=== PATIENT | male | born 1940 | race Caucasian/White ===

== ENCOUNTER → 2016-07-31 | Outpatient (CLI) | payer OTHER ==
[~2016-07-31] VITALS: Ht 175.3 cm; Wt 78.0 kg
[~2016-07-31] MED LIST: ADULT LOW DOSE81 MG PO; AMARYL1 MG PO; ASPIRIN EC81 M1 PO; BENICAR HCT 401 EACH PO; BENTYL20 MG PO; CELEXA 20 MG TA20 M1 PO; CENTRUM SILVER1 EAC2 PO; CIPROFLOXACIN500 M3 PO; CLONIDINE HCL0.2 M2 GT; CRESTOR10 MG PO; CRESTOR20 MG PO; DRAMAMINE50 MG PO; FISH OIL 1,0001 EAC9 PO; FISH OIL 1,2001 EAC4 PO; FLAGYL 250 MG250 MG PO; GABAPENTIN; GAVISCON ES CH1 EAC1 PO; HYDROCODON-ACE1 EAC7 PO; IRON325 PO; LANSOPRAZOLE30 MG PO; LEVAQUIN 500 M500 MG PO; LEVEMIR SUBQ; LIVALO2 MG PO; NISOLDIPINE34 MG PO; ONGLYZA2.5 MG PO; ONGLYZA5 MG PO; PREDNISONE 20 M20 M1 PO; PREVACID 30MG C30 M1 PO; PROVENTIL HFA6.7 G1 INH; REPATHA SU140 MG/1 M SQ; TOPROL XL100 MG PO; TOPROL XL50 MG PO; VITAMIN B COMP1 EACH PO; VITAMIN D1000 UNIT PO; ZPAK PO
--- NOTE | ~2016-07-31 | P ---
[facility] [place] [address] PROCEDURE REPORT Name: MARLYN DIALLO Room #: REG [facility]#: [id number] Admission: 07/31/16 Attend Phys: Joce Stewart Discharge: Date of : 38 Report #: [id number] THIS REPORT FOR: //name// CC: Joce Proctor MD PROCEDURE PERFORMED: Colonoscopy with biopsies. HISTORY OF PRESENT ILLNESS: The patient is a 76-year-old male with a history of colon polyps in 2005, last colonoscopy in 2010 showed diverticulosis, but otherwise negative. He is here for routine followup. He denies any symptoms at this time. DESCRIPTION OF PROCEDURE: The risks and benefits of the procedure were explained to the patient, those risks including but not limited to bleeding, perforation, the risk of sedation. He understood these risks and gave informed consent. Sedation was given using propofol per anesthesia. Next, a digital rectal exam was initially performed, which was normal. Next, using a standard Fujinon colonoscope, the scope was placed in the patient's anus and advanced under direct vision to the cecum. The overall prep was excellent. The cecum and ileocecal valve were normal in appearance. Terminal ileum was intubated and normal in appearance. In the ascending colon, a single 3 mm sessile polyp was noted. This was removed with cold forceps, otherwise or this was removed with cold forceps. Scattered diverticulosis was noted throughout the colon today, no evidence of inflammation, otherwise normal transverse, descending and sigmoid colon. The rectal mucosa was normal. On retroflexion, small nonbleeding internal hemorrhoids were noted. The scope was then withdrawn and the procedure terminated. The patient tolerated the procedure well. IMPRESSION: 1. Small colonic polyp. 2. Mild pandiverticulosis. 3. Small internal hemorrhoids. 4. Otherwise, normal colonoscopy. RECOMMENDATIONS: Await biopsy results. If polyp is hyperplastic, repeat colonoscopy and consider repeat colonoscopy in 10 years; if adenomatous polyp, repeat colonoscopy in 5 years. Thank you for allowing me to participate in his care. <ELECTRONICALLY SIGNED> By: Joce Davis MD 08/01/16 1221 0903 1527 Joce Davis MD /nt
--- NOTE | ~2016-07-31 | S ---
[facility] [address] [place] [address] SURGICAL PATH RPT PROCEDURE Name: MARLYN DIALLO Room #: REG MARILYNN SolisR.#: [id number] Admission: 07/31/16 Date of : 38 Discharge: Report #: [id number] Path Case #: [id number] PATHOLOGY REPORT DRAFT COLLECTION DATE: 07/31/2016 RECEIVED DATE: 07/31/2016 SPECIMEN(S) RECEIVED: A.Ascending colon polyp
== END | disposition home or self-care (01) ==
LOC: GI 07:44
DX: Z12.11 Encounter for screening for malignant neoplasm of colon (principal); D12.2 Benign neoplasm of ascending colon; K57.30 Diverticulosis of large intestine without perforation or abscess without bleeding; K64.8 Other hemorrhoids; I10 Essential (primary) hypertension
CPT/HCPCS: 62110; 62900

== ENCOUNTER → 2016-10-04 | Outpatient (CLI) | payer OTHER ==
[2016-10-04 09:01] LABS: CREATININE 1.8 mg/dL (0.7-1.3)
== END | disposition home or self-care (01) ==
LOC: RAD 07:49 → CAT 09:53 → LAB 09:57 → RAD 10:01
PROVIDERS: Orthopaedic Surgery Sports Medicine
DX: M75.101 Unspecified rotator cuff tear or rupture of right shoulder, not specified as traumatic (principal)

== ENCOUNTER 2016-11-01 05:17 | Day surgery (SDC) | payer OTHER ==
[~2016-11-01] VITALS: Ht 177.8 cm; Wt 79.4 kg
[~2016-11-01 05:17] MED LIST changes: +DEMADEX20 MG PO; +LOPRESSOR50 PO; +MAXZIDE-25 MG1 EACH PO
[2016-11-01 07:11] LABS: CALCIUM 9.7 mg/dL (8.5-10.1); CREATININE 2.2 mg/dL (0.7-1.3); POTASSIUM 5.1 mmol/L (3.5-5.1)
[2016-11-01 07:15] VITALS: BP 155/89
[2016-11-01 10:02] VITALS: BP 155/89
== END 2016-11-01 10:30 | disposition home or self-care (01) ==
LOC: TBA 05:17 → OR 05:17
PROVIDERS: Orthopaedic Surgery Sports Medicine
DX: M75.101 Unspecified rotator cuff tear or rupture of right shoulder, not specified as traumatic (principal); M75.41 Impingement syndrome of right shoulder; M94.211 Chondromalacia, right shoulder; Z95.1 Presence of aortocoronary bypass graft; I10 Essential (primary) hypertension; E78.00 Pure hypercholesterolemia, unspecified; I21.3 ST elevation (STEMI) myocardial infarction of unspecified site; K21.9 Gastro-esophageal reflux disease without esophagitis; E11.9 Type 2 diabetes mellitus without complications; Z90.49 Acquired absence of other specified parts of digestive tract
CPT/HCPCS: 50010; 50101; 50172; 50386; 50417; 50597; 50950; 51038; 51445; 51847; 53610; 54170; 55430; 56527; 62110; 62900; 70005

== ENCOUNTER → 2017-07-31 | Outpatient (CLI) | payer OTHER | END | disposition home or self-care (01) | LOC: CAT 09:28 | DX: M23.221 Derangement of posterior horn of medial meniscus due to old tear or injury, right knee (principal); M22.41 Chondromalacia patellae, right knee ==

== ENCOUNTER 2017-12-22 19:36 | Emergency (ER) | payer OTHER ==
[~2017-12-22] VITALS: Ht 177.8 cm; Wt 81.2 kg
--- NOTE | ~2017-12-22 | EKG ---
[place] [address] [facility] [facility] [place] [address] ELECTROCARDIOGRAM REPORT Name: MARLYN DIALLO Room #: DEP [facility]#: [id number] Admission: 12/22/17 Attend Phys: Discharge: 12/22/17 Date of : 38 Report #: [id number] THIS REPORT FOR: //name// [facility] ED Test Date: 2017-12-22 Test Time: 19:50:59 Pat Name: MARLYN DIALLO Department: Room: Gender: Compressor Technician: GRACEJagruti : 1940 Requested By: Pinky Robles Order Number: [id number] MD: Miki Kirkland Measurements Intervals [place] Rate: 84 P: 32 MI: 225 QRS: -21 QRSD: 98 T: 8 QT: 375 QTc: 444 Interpretive Statements Sinus rhythm Prolonged MI interval Borderline T wave abnormalities Baseline wander in lead(s) II,III,aVF Compared to ECG 09/15/2014 11:37:08 Ventricular premature complex(es) no longer present Electronically Signed On 12-24-2017 8:34:01 CDT by Miki Kirkland [email or web address] <ELECTRONICALLY SIGNED> By: Miki Kirkland MD, FAC 12/24/17 0834 1950 1950 Miki Kirkland MD, [facility] /EPI
[2017-12-22] MEDS ORDERED: LEVOTHYROXINE25 MCG PO (20:06)
[2017-12-22 20:22] LABS: ABSOLUTE NEUTROPHILS 3.2 thou/uL (1.4-8.2); BASOPHILS 0.9 % (0.0-2.0); EOSINOPHILS 7.9 % (0.0-3.0); HEMATOCRIT 32.3 % (42.0-52.0); LYMPHOCYTES 24.9 % (24.0-44.0); MCH 31.5 pg (26.0-34.0); MCHC 34.2 g/dL (28.0-37.0); MCV 92.3 fL (80.0-100.0); MONOCYTES 8.7 % (1.0-8.0); PLATELET COUNT 262 thou/uL (150-400); POLYS 57.6 % (36.0-66.0); RDW 13.9 % (10.5-14.5); WBC 5.5 thou/uL (4.0-11.0)
[2017-12-22 20:30] LABS: ANION GAP 13 mmol/L (7-16); BUN 52 mg/dL (7-18); CALCIUM 9.2 mg/dL (8.5-10.1); CHLORIDE 104 mmol/L (98-107); CO2 19 mmol/L (21-32); CREATININE 2.5 mg/dL (0.7-1.3); GLUCOSE 281 mg/dL (74-106); SODIUM 136 mmol/L (136-145)
[2017-12-22 20:41] LABS: TROPONIN-I <0.06 ng/mL (<0.06)
[2017-12-22] MEDS ORDERED: PROVENTIL HFA6.7 G1 INH (21:38)
[2017-12-22] MEDS ORDERED: PULMICORT0.5 MG/22 INH (21:52)
[2017-12-22] MEDS ORDERED: FLONASE 0.05%50 MCG NASAL (21:55)
[2017-12-22 22:00] VITALS: BP 165/71
== END 2017-12-22 22:00 | disposition home or self-care (01) ==
LOC: ER 19:36
PROVIDERS: Emergency Medicine
DX: J06.9 Acute upper respiratory infection, unspecified (principal); N18.9 Chronic kidney disease, unspecified; I13.0 Hypertensive heart and chronic kidney disease with heart failure and stage 1 through stage 4 chronic kidney disease, or unspecified chronic kidney disease; E11.22 Type 2 diabetes mellitus with diabetic chronic kidney disease; I50.9 Heart failure, unspecified; E78.00 Pure hypercholesterolemia, unspecified; K21.9 Gastro-esophageal reflux disease without esophagitis; Z90.49 Acquired absence of other specified parts of digestive tract; Z95.5 Presence of coronary angioplasty implant and graft; Z87.442 Personal history of urinary calculi; Z88.8 Allergy status to other drugs, medicaments and biological substances; Z79.4 Long term (current) use of insulin

== ENCOUNTER 2018-05-27 22:15 | Emergency (ER) | payer OTHER ==
[~2018-05-27] VITALS: Ht 175.3 cm; Wt 91.2 kg
[~2018-05-27 22:15] MED LIST changes: +FLONASE 0.05%50 MCG NASAL; +LEVOTHYROXINE25 MCG PO; +PULMICORT0.5 MG/22 INH
[2018-05-27] MEDS ORDERED: ZPAK PO (23:01)
[2018-05-27] MEDS ORDERED: NEURONTIN 300300 M1 PO (23:02)
[2018-05-27] MEDS ORDERED: TORSEMIDE20 MG PO (23:03)
[2018-05-27] MEDS ORDERED: LEXAPRO 10 MG T10 M2 PO (23:03)
[2018-05-27 23:05] LABS: ABSOLUTE NEUTROPHILS 5.4 thou/uL (1.4-8.2); BASOPHILS 0.5 % (0.0-2.0); HEMATOCRIT 33.7 % (42.0-52.0); HEMOGLOBIN 11.6 gm/dL (14.0-18.0); LYMPHOCYTES 12.4 % (24.0-44.0); MCH 31.3 pg (26.0-34.0); MCHC 34.5 g/dL (28.0-37.0); MCV 90.9 fL (80.0-100.0); MONOCYTES 9.3 % (1.0-8.0); PLATELET COUNT 216 thou/uL (150-400); POLYS 75.8 % (36.0-66.0); RBC 3.71 mil/uL (4.50-6.00); RDW 12.9 % (10.5-14.5); WBC 7.1 thou/uL (4.0-11.0)
[2018-05-27 23:17] LABS: CALCIUM 8.7 mg/dL (8.5-10.1); CREATININE 3.3 mg/dL (0.7-1.3); POTASSIUM 4.8 mmol/L (3.5-5.1)
[2018-05-27] MEDS ORDERED: ACETAMINOPHEN-1 EAC1 PO (23:55)
[2018-05-28 00:18] VITALS: BP 124/52
[2018-05-29] MEDS ORDERED: REPATHA SY140 MG/1 M SUBQ (23:43)
== END 2018-05-28 00:18 | disposition home or self-care (01) ==
LOC: ER 22:15
PROVIDERS: Emergency Medicine
DX: J18.9 Pneumonia, unspecified organism (principal); E11.9 Type 2 diabetes mellitus without complications; I10 Essential (primary) hypertension; E78.00 Pure hypercholesterolemia, unspecified; K21.9 Gastro-esophageal reflux disease without esophagitis; Z95.1 Presence of aortocoronary bypass graft; Z95.5 Presence of coronary angioplasty implant and graft; Z88.8 Allergy status to other drugs, medicaments and biological substances

== ENCOUNTER 2018-05-29 21:09 | Inpatient (IN) | payer OTHER ==
[~2018-05-29] VITALS: Ht 175.3 cm; Wt 92.1 kg
[~2018-05-29 21:09] MED LIST changes: +ACETAMINOPHEN-1 EAC1 PO; +LEXAPRO 10 MG T10 M2 PO; +NEURONTIN 300300 M1 PO; +TORSEMIDE20 MG PO
[2018-05-29 21:20] VITALS: BP 156/66
[2018-05-29 22:20] LABS: HEMATOCRIT 31.1 % (42.0-52.0); HEMOGLOBIN 10.6 gm/dL (14.0-18.0); MCH 31.2 pg (26.0-34.0); MCHC 33.9 g/dL (28.0-37.0); PLATELET COUNT 198 thou/uL (150-400); RBC 3.38 mil/uL (4.50-6.00); RDW 13.2 % (10.5-14.5); WBC 6.2 thou/uL (4.0-11.0)
[2018-05-29 22:25] LABS: ANION GAP 14 mmol/L (7-16); BUN 86 mg/dL (7-18); CALCIUM 8.8 mg/dL (8.5-10.1); CHLORIDE 101 mmol/L (98-107); CO2 22 mmol/L (21-32); GLUCOSE 149 mg/dL (74-106); POTASSIUM 4.9 mmol/L (3.5-5.1); SODIUM 137 mmol/L (136-145)
[2018-05-29 22:29] LABS: CREATININE 4.4 mg/dL (0.7-1.3)
[2018-05-29 22:34] LABS: ALBUMIN 2.9 g/dL (3.4-5.0); MAGNESIUM 2.2 mg/dL (1.8-2.4); SGOT 15 U/L (15-37); SGPT 14 U/L (30-65); TOTAL BILIRUBIN 0.5 mg/dL (<0.1-1.0); TOTAL PROTEIN 6.9 g/dL (6.4-8.2); TROPONIN-I <0.06 ng/mL (<0.06)
[2018-05-29 22:55] VITALS: BP 153/63
[2018-05-29 22:55] LABS: ABSOLUTE NEUTROPHILS 4.2 thou/uL (1.4-8.2)
[2018-05-29 22:58] LABS: PLATELET ESTIMATE NORMAL; POLYCHROMASIA OCCASIONAL
[2018-05-29 23:25] VITALS: BP 154/57
[2018-05-29] MEDS ORDERED: REPATHA SY140 MG/1 M SUBQ (23:43)
--- NOTE | 2018-05-30 04:18 | NUR ---
PT ORIENTATED TO ROOM AND CALL LIGHT PT VERY IQUGMIUT AND IS NOT ABLE TO UNDERSTAND COMMANDS THE BEST PROVIDER NOTIFIED OF PT ORDERS GIVEN.
[2018-05-30 04:20] VITALS: BP 148/52
[2018-05-30 07:37] VITALS: BP 166/52
[2018-05-30 08:40] LABS: CALCIUM 9.1 mg/dL (8.5-10.1); CREATININE 3.5 mg/dL (0.7-1.3); POTASSIUM 4.8 mmol/L (3.5-5.1)
--- NOTE | 2018-05-30 08:53 | EKG ---
[place] [address] [facility] [place] [address] ELECTROCARDIOGRAM REPORT Name: MARLYN DIALLOIN Room #: 464-P ADM IN M.R.#: [id number] Admission: 05/29/18 Attend Phys: Jared Proctor MD Discharge: Date of : 38 Report #: [id number] THIS REPORT FOR: //name// [facility] ED Test Date: 2018-05-29 Test Time: 22:43:04 Pat Name: MARLYN DIALLO Department: Room: 464 Gender: M Risk Officer: aly : 1940 Requested By: Sudarshan Booker Order Number: [id number] MD: Miki Kirkland Measurements Intervals [place] Rate: 95 P: 28 [place]: 210 QRS: -15 QRSD: 108 T: 101 QT: 360 QTc: 453 Interpretive Statements Sinus tachycardia Premature ventricular complexes Borderline repolarization abnormality Compared to ECG 12/22/2017 19:50:59 Ventricular premature complex(es) now present Electronically Signed On 05-30-2018 8:53:28 ASSET ADMINISTRATOR by Miki Kirkland [email or web address] <ELECTRONICALLY SIGNED> By: Miki Kirkland MD, [facility] 05/30/18 0853 2243 42 Miki Kirkland MD, [facility] /EPI
[2018-05-30 10:14] VITALS: BP 153/78
--- NOTE | 2018-05-30 15:33 | NUR ---
ASSUMED PT CARE AT 0645 . PT IS A/OX4 BUT VERY TAZLINA. PT COMPLAINED OF CLAMMINESS THAT WENT AWAY WITHIN AN HOUR, WITHOUT INTERVENTION. WILL CONTINUE TO MONTIOR PT
[2018-05-30 16:02] VITALS: BP 153/52
--- NOTE | 2018-05-30 16:21 | NUR ---
PT ADMITTED RELATED TO PNA. CM REVIEWED CHART AND SPOKE WITH LESLI TEAM. CM MET WITH PT AT BEDSIDE THIS DAY. PT IS A&O X4. CM ROLE INTRODUCED. PT INDICATED HE LIVES IN A GROUND CONTACT HOUSE WITH HIS . PT INDICATED HE HAD BEEN INDEPENDENT WITH GAIT AND ADLS FLOWER PICKER. PT INDICATED HE HAS A NEBULIZER AT HOME BUT THAT HE HADN'T USED IT FLOWER PICKER. PT INDICATED NO HH OR OTHER DME HX. PT PLANS TO RETURN HOME ONCE MEDICALLY STABLE. CM TO FOLLOW INDICATED WITH DC PLANNING.
[2018-05-31 04:58] VITALS: BP 131/64
[2018-05-31 05:46] LABS: ALBUMIN 2.7 g/dL (3.4-5.0); CALCIUM 8.7 mg/dL (8.5-10.1); CREATININE 2.7 mg/dL (0.7-1.3); PHOSPHORUS 3.9 mg/dL (2.5-4.9)
[2018-05-31 06:08] LABS: POTASSIUM 3.8 mmol/L (3.5-5.1)
--- NOTE | 2018-05-31 07:30 | NUR ---
PROGRESS PT HAVING DIFFICULTY SLEEPING AMBULATED IN HALLS A FEW TIMES LAST NIGHT. DENIES PAIN REQUESTED COUGH DROPS DAY NURSE TO SPEAK TO THIS AM TO GET AN ORDER CONTINUE TO MONITOR.
[2018-05-31] MEDS ORDERED: CEFDINIR300 MG PO (07:52)
[2018-05-31 08:15] VITALS: BP 139/67
[2018-05-31 09:40] VITALS: BP 139/67
--- NOTE | 2018-05-31 09:58 | NUR ---
PT STABLE THIS MORNING. PT GIVEN ABX AND DISCHARGED HOME. PT LEFT UNIT VIA WHEELCHAIR TO PRIVATE VEHICLE.
== END 2018-05-31 11:25 | disposition home or self-care (01) | DRG 682 ==
LOC: ER 21:09 → 4W 23:12 → ENTRNSPT 05-31 09:47 → 4W 05-31 11:25
PROVIDERS: Emergency Medicine; Hospitalist; ADMIT Family Medicine
DX: N17.9 Acute kidney failure, unspecified (principal); J18.9 Pneumonia, unspecified organism; E78.5 Hyperlipidemia, unspecified; K21.9 Gastro-esophageal reflux disease without esophagitis; E11.22 Type 2 diabetes mellitus with diabetic chronic kidney disease; N18.9 Chronic kidney disease, unspecified; E86.0 Dehydration; I12.9 Hypertensive chronic kidney disease with stage 1 through stage 4 chronic kidney disease, or unspecified chronic kidney disease; Z95.1 Presence of aortocoronary bypass graft; Z95.5 Presence of coronary angioplasty implant and graft; Z90.49 Acquired absence of other specified parts of digestive tract; Z87.442 Personal history of urinary calculi; Z79.4 Long term (current) use of insulin; Z79.82 Long term (current) use of aspirin; Z79.899 Other long term (current) drug therapy; Z88.8 Allergy status to other drugs, medicaments and biological substances
CPT/HCPCS: 10045

== ENCOUNTER 2018-09-09 19:07 | Emergency (ER) | payer OTHER ==
[~2018-09-09] VITALS: Ht 177.8 cm; Wt 83.9 kg
[~2018-09-09 19:07] MED LIST changes: +CEFDINIR300 MG PO; +REPATHA SY140 MG/1 M SUBQ
[2018-09-09] MEDS ORDERED: VITAMIN B COMP1 EACH PO (19:18)
[2018-09-09 19:28] LABS: ABSOLUTE NEUTROPHILS 3.4 thou/uL (1.4-8.2); BASOPHILS 0.9 % (0.0-2.0); HEMATOCRIT 33.9 % (42.0-52.0); HEMOGLOBIN 11.8 gm/dL (14.0-18.0); LYMPHOCYTES 29.8 % (24.0-44.0); MCH 31.5 pg (26.0-34.0); MCHC 34.8 g/dL (28.0-37.0); MCV 90.3 fL (80.0-100.0); MONOCYTES 9.1 % (1.0-8.0); PLATELET COUNT 240 thou/uL (150-400); POLYS 55.2 % (36.0-66.0); RBC 3.75 mil/uL (4.50-6.00); RDW 13.8 % (10.5-14.5); WBC 6.1 thou/uL (4.0-11.0)
[2018-09-09 19:33] LABS: ANION GAP 13 mmol/L (7-16); BUN 72 mg/dL (7-18); CALCIUM 9.3 mg/dL (8.5-10.1); CHLORIDE 104 mmol/L (98-107); CO2 23 mmol/L (21-32); CREATININE 3.1 mg/dL (0.7-1.3); GLUCOSE 259 mg/dL (74-106); POTASSIUM 4.4 mmol/L (3.5-5.1); SODIUM 140 mmol/L (136-145)
[2018-09-09 19:41] LABS: TROPONIN-I <0.06 ng/mL (<0.06)
[2018-09-09] MEDS ORDERED: IPRATROPIUM BRO15 ML NASAL (21:17)
[2018-09-09 21:35] VITALS: BP 164/71
--- NOTE | 2018-09-10 09:16 | EKG ---
[place] [address] [facility] [place] [address] ELECTROCARDIOGRAM REPORT Name: MARLYN DIALLO [facility] [id number] ������������������ Admission: 09/09/18 ������������������ Attend Phys: Discharge: 09/09/18 ������������������ Date of : 38 Report #: [id number] ����������������������������������������������������������������� [id number] THIS REPORT FOR: //name// [facility] ED Test Date: 2018-09-09 Test Time: 19:15:43 Pat Name: MARLYN DIALLO Department: Room: Gender: Senior Specialist: TALIA : 1940 Requested By: Marlyn Zaldivar Order Number: [id number] MD: Miki Kirkland Measurements Intervals [place] Rate: 85 P: 40 HI: 220 QRS: -21 QRSD: 107 T: 30 QT: 367 QTc: 437 Interpretive Statements Sinus rhythm Frequent premature ventricular complexes Prolonged HI interval Compared to ECG 05/29/2018 22:43:04 No significant change was found Electronically Signed On 09-10-2018 9:16:36 CDT by Miki Kirkland [email or web address] ��������������������������������������������� <ELECTRONICALLY SIGNED> ���������������������������������������� By: Miki Kirkland MD, [facility] ��������������������������������������������� 09/10/18 0916 1914 14 Miki Kirkland MD, FACC /EPI
== END 2018-09-09 21:36 | disposition home or self-care (01) ==
LOC: ER 19:07
PROVIDERS: Emergency Medicine
DX: J30.2 Other seasonal allergic rhinitis (principal); E11.9 Type 2 diabetes mellitus without complications; E78.00 Pure hypercholesterolemia, unspecified; I10 Essential (primary) hypertension; K21.9 Gastro-esophageal reflux disease without esophagitis; E78.5 Hyperlipidemia, unspecified; Z90.49 Acquired absence of other specified parts of digestive tract; Z88.8 Allergy status to other drugs, medicaments and biological substances; Z95.5 Presence of coronary angioplasty implant and graft; Z79.4 Long term (current) use of insulin

== ENCOUNTER 2019-03-07 20:02 | Emergency (ER) | payer OTHER ==
[~2019-03-07] VITALS: Ht 177.8 cm; Wt 81.7 kg
[~2019-03-07 20:02] MED LIST changes: +IPRATROPIUM BRO15 ML NASAL
[2019-03-07 21:10] LABS: HEMATOCRIT 34.2 % (42.0-52.0); HEMOGLOBIN 11.2 gm/dL (14.0-18.0); MCH 30.2 pg (26.0-34.0); MCHC 32.9 g/dL (28.0-37.0); MCV 91.9 fL (80.0-100.0); PLATELET COUNT 286 thou/uL (150-400); RBC 3.72 mil/uL (4.50-6.00); RDW 13.9 % (10.5-14.5); WBC 15.4 thou/uL (4.0-11.0)
[2019-03-07 21:23] LABS: CALCIUM 8.9 mg/dL (8.5-10.1); CREATININE 2.9 mg/dL (0.7-1.3); POTASSIUM 5.2 mmol/L (3.5-5.1)
[2019-03-07 21:28] LABS: ALBUMIN 3.9 g/dL (3.4-5.0); TOTAL BILIRUBIN 0.4 mg/dL (<0.1-1.0)
[2019-03-07 21:49] LABS: URINE BILIRUBIN NEGATIVE (Negative); URINE BLOOD NEGATIVE (Negative); URINE CLARITY CLEAR; URINE COLOR YELLOW; URINE GLUCOSE-RANDOM* NEGATIVE (Negative); URINE KETONES NEGATIVE (Negative); URINE LEUKOCYTES-REFLEX NEGATIVE (Negative); URINE NITRITE-REFLEX NEGATIVE (Negative); URINE PROTEIN (DIPSTICK) 1+ (Negative); URINE UROBILINOGEN 0.2 E.U./dl (0.2-1.0)
[2019-03-07 21:56] LABS: ABSOLUTE NEUTROPHILS 13.6 thou/uL (1.4-8.2); ANISOCYTOSIS 1+
[2019-03-07 21:58] LABS: BACTERIA-REFLEX 1-9 Few /HPF (None Seen); CASTS None Seen /LPF (None Seen); CRYSTALS None Seen /LPF (None Seen); SQUAMOUS None Seen /LPF (0-3); URINE RBC None Seen /HPF (0-2); URINE WBC-REFLEX None Seen /HPF (0-5)
[2019-03-07 22:43] VITALS: BP 136/53
--- NOTE | 2019-03-09 11:22 | EKG ---
[place] [address] [address] [facility] [place] [address] ELECTROCARDIOGRAM REPORT Name: MARLYN DIALLO SHARRI [id number] Admission: 03/07/19 Attend Phys: Discharge: 03/07/19 Date of : 38 Report #: [id number] THIS REPORT FOR: //name// [facility] ED Test Date: 2019-03-07 Test Time: 22:04:46 Pat Name: MARLYN DIALLO Department: Room: Gender: Construction Teacher: : 1940 Requested By: Sherry Beard Order Number: [id number] MD: Royce Delgado Measurements Intervals [place] Rate: 90 P: 17 ME: 215 QRS: -18 QRSD: 87 T: 72 QT: 361 QTc: 442 Interpretive Statements Sinus rhythm Ventricular bigeminy Borderline prolonged ME interval Borderline left axis deviation Nonspecific T abnormalities, lateral leads Compared to ECG 09/09/2018 19:15:43 T-wave abnormality now present Electronically Signed On 03-09-2019 11:21:57 RECREATIONAL PROGRAMS DIRECTOR by Royce Delgado [email or web address] <ELECTRONICALLY SIGNED> By: Royce Delgado MD 03/09/19 1121 03 03 Royce Delgado MD /EPI
== END 2019-03-07 22:43 | disposition home or self-care (01) ==
LOC: ER 20:02
PROVIDERS: Student in an Organized Health Care Education/Training Program
DX: B34.9 Viral infection, unspecified (principal); E11.9 Type 2 diabetes mellitus without complications; I10 Essential (primary) hypertension; K21.9 Gastro-esophageal reflux disease without esophagitis; Z90.49 Acquired absence of other specified parts of digestive tract; Z95.1 Presence of aortocoronary bypass graft; Z95.2 Presence of prosthetic heart valve; E78.00 Pure hypercholesterolemia, unspecified; Z88.8 Allergy status to other drugs, medicaments and biological substances

== ENCOUNTER → 2019-09-02 | Outpatient (CLI) | payer OTHER | LOC: SJCVC 15:01 | DX: I25.10 Atherosclerotic heart disease of native coronary artery without angina pectoris (principal); I12.9 Hypertensive chronic kidney disease with stage 1 through stage 4 chronic kidney disease, or unspecified chronic kidney disease; E11.22 Type 2 diabetes mellitus with diabetic chronic kidney disease; N18.3 Chronic kidney disease, stage 3 (moderate); I65.23 Occlusion and stenosis of bilateral carotid arteries; E78.5 Hyperlipidemia, unspecified; Z79.82 Long term (current) use of aspirin; Z79.899 Other long term (current) drug therapy ==

== ENCOUNTER 2020-01-03 14:06 | Emergency (ER) | payer OTHER ==
[~2020-01-03] VITALS: Ht 177.8 cm; Wt 83.9 kg
[2020-01-03 14:39] LABS: ABSOLUTE NEUTROPHILS 3.3 thou/uL (1.4-8.2); BASOPHILS 0.8 % (0.0-2.0); EOSINOPHILS 4.8 % (0.0-3.0); HEMATOCRIT 31.8 % (42.0-52.0); HEMOGLOBIN 11.1 gm/dL (14.0-18.0); LYMPHOCYTES 20.5 % (24.0-44.0); MCH 31.7 pg (26.0-34.0); MCHC 34.8 g/dL (28.0-37.0); MCV 91.3 fL (80.0-100.0); PLATELET COUNT 263 thou/uL (150-400); POLYS 63.9 % (36.0-66.0); RBC 3.48 mil/uL (4.50-6.00); RDW 13.7 % (10.5-14.5); WBC 5.1 thou/uL (4.0-11.0)
[2020-01-03 14:48] LABS: ANION GAP 13 mmol/L (7-16); BUN 39 mg/dL (7-18); CALCIUM 8.5 mg/dL (8.5-10.1); CHLORIDE 106 mmol/L (98-107); CO2 19 mmol/L (21-32); CREATININE 2.6 mg/dL (0.7-1.3); GLUCOSE 249 mg/dL (74-106); POTASSIUM 4.2 mmol/L (3.5-5.1); SODIUM 138 mmol/L (136-145)
[2020-01-03] MEDS ORDERED: DEMADEX20 MG PO (14:50)
[2020-01-03] MEDS ORDERED: VALSARTAN320 MG PO (14:51)
[2020-01-03] MEDS ORDERED: LEVEMIR100 UNIT/1 SUBQ ×2 (14:51)
[2020-01-03] MEDS ORDERED: FUROSEMIDE 40 M40 MG PO (14:51)
[2020-01-03] MEDS ORDERED: LUNESTA3 MG PO (14:51)
[2020-01-03 14:58] LABS: ALBUMIN 3.6 g/dL (3.4-5.0); MAGNESIUM 1.9 mg/dL (1.8-2.4); SGOT 15 U/L (15-37); SGPT 16 U/L (30-65); TOTAL BILIRUBIN 0.2 mg/dL (0.2-1.0); TOTAL PROTEIN 7.5 g/dL (6.4-8.2); TROPONIN-I <0.06 ng/mL (<0.06)
[2020-01-03 15:18] LABS: URINE BILIRUBIN NEGATIVE (Negative); URINE BLOOD NEGATIVE (Negative); URINE CLARITY CLEAR; URINE COLOR YELLOW; URINE GLUCOSE-RANDOM* TRACE (Negative); URINE KETONES NEGATIVE (Negative); URINE LEUKOCYTES-REFLEX NEGATIVE (Negative); URINE NITRITE-REFLEX NEGATIVE (Negative); URINE PROTEIN (DIPSTICK) NEGATIVE (Negative); URINE UROBILINOGEN 0.2 E.U./dl (0.2-1.0)
[2020-01-03 15:51] VITALS: BP 137/60
--- NOTE | 2020-01-05 08:06 | EKG ---
[facility] [place] [address] [address] ELECTROCARDIOGRAM REPORT Name: MARLYN DIALLO Room #: DEP [facility].Gisela#: [id number] Admission: 01/03/20 Attend Phys: Discharge: 01/03/20 Date of : 38 Report #: [id number] THIS REPORT FOR: cc: Jared Proctor MD, Neal A. MD Lundgren, Craig H. MD [facility] ~ THIS REPORT FOR: //name// [facility] ED Test Date: 2020-01-03 Test Time: 14:20:41 Pat Name: MARLYN DIALLO Department: Room: Gender: Small Business Consultant: [place] : 1940 Requested By: Bony Pickett Order Number: [id number] MD: Miki Kirkland Measurements Intervals [place] Rate: 90 P: 26 FL: 221 QRS: -22 QRSD: 96 T: 87 QT: 367 QTc: 449 Interpretive Statements Sinus rhythm Borderline prolonged [place] interval Borderline left axis deviation Borderline T wave abnormalities Compared to ECG 03/07/2019 22:04:46 Ventricular premature complex(es) no longer present Electronically Signed On 01-05-2020 8:06:41 CDT by Miki Kirkland [email or web address] <ELECTRONICALLY SIGNED> By: Miki Kirkland MD, [facility] 01/05/20 0806 1420 142 Miki Kirkland MD, [facility] /EPI
== END 2020-01-03 15:51 | disposition home or self-care (01) ==
LOC: ER 14:06
PROVIDERS: Emergency Medicine
DX: R42 Dizziness and giddiness (principal); I25.10 Atherosclerotic heart disease of native coronary artery without angina pectoris; I12.9 Hypertensive chronic kidney disease with stage 1 through stage 4 chronic kidney disease, or unspecified chronic kidney disease; E11.22 Type 2 diabetes mellitus with diabetic chronic kidney disease; N18.9 Chronic kidney disease, unspecified; K21.9 Gastro-esophageal reflux disease without esophagitis; Z95.1 Presence of aortocoronary bypass graft; Z90.49 Acquired absence of other specified parts of digestive tract; Z79.82 Long term (current) use of aspirin; Z79.899 Other long term (current) drug therapy; Z88.8 Allergy status to other drugs, medicaments and biological substances

== ENCOUNTER → 2020-01-20 | Outpatient (CLI) | payer OTHER ==
[~2020-01-20] MED LIST changes: +FUROSEMIDE 40 M40 MG PO; +LEVEMIR100 UNIT/1 SUBQ; +LUNESTA3 MG PO; +VALSARTAN320 MG PO
== END ==
LOC: HYPER 11:50
PROVIDERS: ATTEND Emergency Medicine
DX: E11.622 Type 2 diabetes mellitus with other skin ulcer (principal); L89.322 Pressure ulcer of left buttock, stage 2; L89.311 Pressure ulcer of right buttock, stage 1; L98.411 Non-pressure chronic ulcer of buttock limited to breakdown of skin; H90.0 Conductive hearing loss, bilateral; R21 Rash and other nonspecific skin eruption; I25.10 Atherosclerotic heart disease of native coronary artery without angina pectoris; E78.5 Hyperlipidemia, unspecified; I10 Essential (primary) hypertension; F32.9 Major depressive disorder, single episode, unspecified; Z79.4 Long term (current) use of insulin; Z79.82 Long term (current) use of aspirin; Z95.1 Presence of aortocoronary bypass graft; Z90.89 Acquired absence of other organs; Z98.49 Cataract extraction status, unspecified eye

== ENCOUNTER → 2020-02-03 | Outpatient (CLI) | payer OTHER | LOC: HYPER 08:35 | PROVIDERS: ATTEND Emergency Medicine | DX: E11.622 Type 2 diabetes mellitus with other skin ulcer (principal); L89.322 Pressure ulcer of left buttock, stage 2; L89.311 Pressure ulcer of right buttock, stage 1; L98.411 Non-pressure chronic ulcer of buttock limited to breakdown of skin; H90.0 Conductive hearing loss, bilateral; R21 Rash and other nonspecific skin eruption; I25.10 Atherosclerotic heart disease of native coronary artery without angina pectoris; E78.5 Hyperlipidemia, unspecified; I10 Essential (primary) hypertension; F32.9 Major depressive disorder, single episode, unspecified; Z79.4 Long term (current) use of insulin; Z79.82 Long term (current) use of aspirin; Z95.1 Presence of aortocoronary bypass graft ==

== ENCOUNTER → 2020-03-09 | Outpatient (CLI) | payer OTHER | LOC: SJCVC 09:56 | PROVIDERS: ATTEND Internal Medicine | DX: R94.31 Abnormal electrocardiogram [ECG] [EKG] (principal); E78.5 Hyperlipidemia, unspecified; E11.22 Type 2 diabetes mellitus with diabetic chronic kidney disease; I12.9 Hypertensive chronic kidney disease with stage 1 through stage 4 chronic kidney disease, or unspecified chronic kidney disease; N18.30 Chronic kidney disease, stage 3 unspecified ==

== ENCOUNTER 2020-06-03 18:23 | Inpatient (IN) | payer OTHER ==
[~2020-06-03] VITALS: Ht 180.3 cm; Wt 82.1 kg
[2020-06-03 18:28] VITALS: BP 171/81
[2020-06-03 18:39] LABS: URINE BILIRUBIN NEGATIVE (Negative); URINE BLOOD TRACE (Negative); URINE CLARITY CLEAR; URINE COLOR YELLOW; URINE GLUCOSE-RANDOM* NEGATIVE (Negative); URINE KETONES NEGATIVE (Negative); URINE LEUKOCYTES-REFLEX NEGATIVE (Negative); URINE NITRITE-REFLEX NEGATIVE (Negative); URINE PROTEIN (DIPSTICK) 1+ (Negative); URINE SPECIFIC GRAVITY 1.025 (1.005-1.035); URINE UROBILINOGEN 0.2 E.U./dl (0.2-1.0)
[2020-06-03 18:49] LABS: CASTS None Seen /LPF (None Seen); SQUAMOUS 0-3 Few /LPF (0-3); URINE WBC-REFLEX 0-5 Rare /HPF (0-5)
[2020-06-03 18:50] LABS: BACTERIA-REFLEX None Seen /HPF (None Seen); CRYSTALS None Seen /LPF (None Seen); URINE RBC 0-2 Rare /HPF (0-2)
[2020-06-03 20:03] LABS: ABSOLUTE NEUTROPHILS 15.5 thou/uL (1.4-8.2); BASOPHILS 0.4 % (0.0-2.0); EOSINOPHILS 0.3 % (0.0-3.0); HEMATOCRIT 34.4 % (42.0-52.0); HEMOGLOBIN 11.5 gm/dL (14.0-18.0); MCH 30.4 pg (26.0-34.0); MCHC 33.4 g/dL (28.0-37.0); MONOCYTES 5.2 % (1.0-8.0); PLATELET COUNT 240 thou/uL (150-400); POLYS 92.1 % (36.0-66.0); RBC 3.78 mil/uL (4.50-6.00); RDW 14.7 % (10.5-14.5); WBC 16.8 thou/uL (4.0-11.0)
[2020-06-03 20:14] LABS: CALCIUM 9.3 mg/dL (8.5-10.1); CREATININE 2.9 mg/dL (0.7-1.3); POTASSIUM 4.7 mmol/L (3.5-5.1)
[2020-06-03 20:18] LABS: APTT 24.4 Seconds (24.5-32.8)
[2020-06-03 20:22] LABS: ALBUMIN 3.7 g/dL (3.4-5.0); TOTAL BILIRUBIN 0.5 mg/dL (0.2-1.0); TOTAL PROTEIN 7.3 g/dL (6.4-8.2)
[2020-06-03] MEDS ORDERED: B COMPLEX1 EACH PO (20:29)
[2020-06-03] MEDS ORDERED: VALSARTAN-HCTZ1 EAC4 PO (20:31)
[2020-06-03 20:59] VITALS: BP 171/81
[2020-06-03 21:14] VITALS: BP 156/73
[2020-06-03 21:40] VITALS: BP 164/80
[2020-06-03] MEDS ORDERED: FISH OIL 1,0001 EAC9 PO (21:49)
--- NOTE | 2020-06-04 01:20 | NUR ---
ADMIT PT ADMITTED FROM ER TO ROOM 350 FOR SEPSIS AND R/O COVID. VSS, MED REC COMPLETED, ADMISSION ASSESSMENT COMPLETED. PHARMACY NOTED. PT'S SPOUSE DROPPED OFF BILATERAL COCHLEAR IMPLANTS BATTERIES CELLPHONE AND DEMAND EQUIPMENT REPAIRER. CLOTHING AND WALLET WITH PT ALL OTHER ITEMS BROUGHT TO PT'S ROOM. DISCUSSED POC WITH PT R/V UNDERSTANDING.
[2020-06-04 04:03] VITALS: BP 168/81
--- NOTE | 2020-06-04 04:19 | NUR ---
patients covid test was negative.
--- NOTE | 2020-06-04 05:58 | NUR ---
BLOOD CULTURES SHOWED GRAM POSITIVE COCCI. TO NOTIFY .
--- NOTE | 2020-06-04 07:04 | NUR ---
PHONE CALL TO ANSWERING SERVICE MESSAGE LEFT FOR REGADING NEGATIVE COVID TEST AND BLOOD CULTURES COMING BACK WITH GRAM POSITIVE COCCI.
--- NOTE | 2020-06-04 07:18 | EKG ---
[address] [place] [address] ELECTROCARDIOGRAM REPORT Name: MARLYN DIALLO Abdiel Room #: 350-P ADM IN M.R.#: [id number] Admission: 06/03/20 Attend Phys: Jared Proctor MD Discharge: Date of : 38 Report #: [id number] [facility] ED Test Date: 2020-06-03 Test Time: 20:10:55 Pat Name: MARLYN DIALLO Department: Room: 350 Gender: M Hydraulic Rock Drill Operator: char : 1940 Requested By: Martinez Flores Order Number: [id number] MD: Daniele Pires Measurements Intervals [place] Rate: 94 P: 38 [place]: 221 QRS: -22 QRSD: 98 T: 66 QT: 369 QTc: 462 Interpretive Statements Sinus rhythm Prolonged [place] interval Borderline left axis deviation Nonspecific T abnormalities, lateral leads Compared to ECG 01/03/2020 14:20:41 No significant changes Electronically Signed On 06-04-2020 7:18:15 HIGH SCHOOL ASSISTANT FOOTBALL COACH by Daniele Pires [email or web address] <ELECTRONICALLY SIGNED> By: Daniele Pires MD, [facility] 06/04/20 0718 09 09 Daniele Pires MD, FACC /EPI
--- NOTE | 2020-06-04 07:44 | NUR ---
SPOKE TO PHARMACY TO ENTER HOME MEDS WITH CONVERSIONS
[2020-06-04 08:07] VITALS: BP 148/71
--- NOTE | 2020-06-04 13:39 | NUR ---
INITIAL ASSESSMENT: DANISH reviewed chart and spoke with nursing. Pt was admitted from home due to sepsis. Pt placed in Enhanced Isolation to r/o COVID-19. Pt's test was negative. Enhanced Isolation precautions have been discontinued. Pt is on 2L of O2 and IV abx. Discharge home is anticipated for tomorrow. DANISH placed call to pt's room. No answer. DANISH spoke with pt's , Nathalia, via phone. Introduced role of SW. Pt is normally alert/orientated x 4. Pt and live at home. Prior to admission, pt was independent with ADLs. No use of DME for ambulation. Pt has a nebulizer to use PRN. Pt has bilateral cochlear implants. No hx of services or post-acute placement. Pt has done outpatient therapy in the past following surgeries. Pt's PCP is Dr. Proctor. Pt's family will be able to provide transportation home when discharged. DANISH is following to assist as needed with discharge planning.
[2020-06-04 15:12] VITALS: BP 134/64
--- NOTE | 2020-06-04 17:56 | NUR ---
RN ASSUMED PT'S CARE AT 0700AM, PT IS A&OX3, PT IS CONTINUING IV ABX , PT'S VS ARE STABLE, PT DOES NOT HAVE SOB BY THIS TIME, PT 'S COVID ISOLATION HAS DC , BECAUSE PT'S TEST IS NEGATIVE.PT CAN GET UP TO BATH ROOM BY HIMSELF. PT DENIES PAIN AT THIS TIME.
[2020-06-05 04:14] VITALS: BP 146/67
--- NOTE | 2020-06-05 06:42 | NUR ---
PROGRESS PT A/O X4, UP AD LOAN DENIES PAIN. ZOSYN GIVEN Q8HRS ORDERED PT EATING DRINKING WNL, VOIDING QS HAD A BM YESTERDAY. TOLERATING DIET BUT NOT HAPPY WITH THE FOOD STATES HE'S GOING HOME AND GOING STRAIGHT TO HIS FRIDGE. ACCUCHECKS AND INSULIN INDICATED. PT STATES HE IS RUNNING HIGHER HERE THAN NORMAL. DISCUSSED EFFECT OF SOLUMEDROL ON BLOOD SUGARS. PT PLANS ON DISCHARGING HOME TODAY
--- NOTE | 2020-06-05 07:39 | NUR ---
PROGRESS PT A/O X4, VSS, ACCUCHECKS WITH SSI ORDERED, VOIDING QS UP AD LOAN DENIES PAIN REQUESTED SLEEPING PILL SLEPT FOR MOST OF THE NIGHT. EXPECTS TO DC HOME THIS AM.
[2020-06-05 07:41] VITALS: BP 156/71
[2020-06-05 08:47] LABS: HEMATOCRIT 33.4 % (42.0-52.0); HEMOGLOBIN 10.9 gm/dL (14.0-18.0); MCH 29.9 pg (26.0-34.0); MCHC 32.6 g/dL (28.0-37.0); MCV 91.6 fL (80.0-100.0); RBC 3.64 mil/uL (4.50-6.00); RDW 14.7 % (10.5-14.5); WBC 6.6 thou/uL (4.0-11.0)
[2020-06-05 08:57] LABS: ALBUMIN 3.1 g/dL (3.4-5.0); CALCIUM 8.7 mg/dL (8.5-10.1); PHOSPHORUS 3.3 mg/dL (2.5-4.9); POTASSIUM 4.1 mmol/L (3.5-5.1)
[2020-06-05] MEDS ORDERED: CEFDINIR300 MG PO (08:58)
[2020-06-05 10:33] VITALS: BP 156/71
--- NOTE | 2020-06-05 11:52 | NUR ---
RN ASSUMED PT'S CARE AT 0700AM, PT IS A&OX3, PT'S VS ARE STABLE, PT DOES NOT HAVE SOB AND FEVER, RN RECEIVED ORDER TO DC PT TO HOME, PT'S IV ABX HAS CHANGED TO PO, RN HAS GIVING DC TEACH TO PT, PT UNDERSTANED WELL, 3W STAFF HAS SENDING PT TO ER BY WC, PT'S RN WOUND PT AT ER ABOUT 1130AM.
== END 2020-06-05 11:30 | disposition home or self-care (01) | DRG 872 ==
LOC: ER 18:23 → EROBS 20:50 → 3W 20:50
PROVIDERS: Emergency Medicine; Internal Medicine Nephrology; ADMIT Family Medicine; ATTEND Family Medicine
DX: A40.1 Sepsis due to streptococcus, group B (principal); N30.90 Cystitis, unspecified without hematuria; N21.0 Calculus in bladder; E78.00 Pure hypercholesterolemia, unspecified; I25.10 Atherosclerotic heart disease of native coronary artery without angina pectoris; I10 Essential (primary) hypertension; E78.5 Hyperlipidemia, unspecified; E11.9 Type 2 diabetes mellitus without complications; Z20.822 Contact with and (suspected) exposure to COVID-19; Z79.4 Long term (current) use of insulin; Z79.899 Other long term (current) drug therapy; Z95.1 Presence of aortocoronary bypass graft; Z90.49 Acquired absence of other specified parts of digestive tract; Z95.5 Presence of coronary angioplasty implant and graft; Z88.8 Allergy status to other drugs, medicaments and biological substances
CPT/HCPCS: 10879

== ENCOUNTER → 2020-07-14 | Outpatient (CLI) | payer OTHER ==
[~2020-07-14] MED LIST changes: +B COMPLEX1 EACH PO; +VALSARTAN-HCTZ1 EAC4 PO
== END ==
LOC: HYPER 14:54
PROVIDERS: ATTEND Emergency Medicine
DX: E11.622 Type 2 diabetes mellitus with other skin ulcer (principal); L89.322 Pressure ulcer of left buttock, stage 2; L89.311 Pressure ulcer of right buttock, stage 1; L98.411 Non-pressure chronic ulcer of buttock limited to breakdown of skin; E11.628 Type 2 diabetes mellitus with other skin complications; R21 Rash and other nonspecific skin eruption; I10 Essential (primary) hypertension; I25.10 Atherosclerotic heart disease of native coronary artery without angina pectoris; E78.5 Hyperlipidemia, unspecified; H90.0 Conductive hearing loss, bilateral; F32.9 Major depressive disorder, single episode, unspecified; Z79.4 Long term (current) use of insulin; Z79.82 Long term (current) use of aspirin; Z95.1 Presence of aortocoronary bypass graft

== ENCOUNTER → 2020-09-08 | Outpatient (CLI) | payer OTHER | LOC: SJCVCIMAG 07:23 | PROVIDERS: ATTEND Internal Medicine | DX: I65.23 Occlusion and stenosis of bilateral carotid arteries (principal); I08.1 Rheumatic disorders of both mitral and tricuspid valves; I49.9 Cardiac arrhythmia, unspecified; R94.31 Abnormal electrocardiogram [ECG] [EKG]; I25.10 Atherosclerotic heart disease of native coronary artery without angina pectoris; E78.5 Hyperlipidemia, unspecified; E11.22 Type 2 diabetes mellitus with diabetic chronic kidney disease; I13.10 Hypertensive heart and chronic kidney disease without heart failure, with stage 1 through stage 4 chronic kidney disease, or unspecified chronic kidney disease; N18.30 Chronic kidney disease, stage 3 unspecified; Z90.49 Acquired absence of other specified parts of digestive tract; Z95.1 Presence of aortocoronary bypass graft; Z98.890 Other specified postprocedural states; Z88.8 Allergy status to other drugs, medicaments and biological substances; Z79.82 Long term (current) use of aspirin; Z79.899 Other long term (current) drug therapy; Z86.16 Personal history of COVID-19 ==

== ENCOUNTER → 2021-01-06 | Outpatient (CLI) | payer OTHER | LOC: HYPER 07:33 | PROVIDERS: ATTEND Emergency Medicine | DX: E11.622 Type 2 diabetes mellitus with other skin ulcer (principal); L89.322 Pressure ulcer of left buttock, stage 2; L89.311 Pressure ulcer of right buttock, stage 1; L98.411 Non-pressure chronic ulcer of buttock limited to breakdown of skin; R21 Rash and other nonspecific skin eruption; H90.0 Conductive hearing loss, bilateral; E66.9 Obesity, unspecified; E78.5 Hyperlipidemia, unspecified; I25.10 Atherosclerotic heart disease of native coronary artery without angina pectoris; I10 Essential (primary) hypertension; Z98.49 Cataract extraction status, unspecified eye; Z90.49 Acquired absence of other specified parts of digestive tract; Z79.4 Long term (current) use of insulin; Z79.82 Long term (current) use of aspirin; Z95.1 Presence of aortocoronary bypass graft; Z68.26 Body mass index [BMI] 26.0-26.9, adult ==

== ENCOUNTER → 2021-03-22 | Outpatient (CLI) | payer OTHER | LOC: SJCVC 10:43 | PROVIDERS: ATTEND Internal Medicine | DX: R94.31 Abnormal electrocardiogram [ECG] [EKG] (principal); I44.0 Atrioventricular block, first degree; I25.10 Atherosclerotic heart disease of native coronary artery without angina pectoris; I65.23 Occlusion and stenosis of bilateral carotid arteries; E78.5 Hyperlipidemia, unspecified; I12.9 Hypertensive chronic kidney disease with stage 1 through stage 4 chronic kidney disease, or unspecified chronic kidney disease; N18.30 Chronic kidney disease, stage 3 unspecified; E11.22 Type 2 diabetes mellitus with diabetic chronic kidney disease; E11.9 Type 2 diabetes mellitus without complications; Z88.8 Allergy status to other drugs, medicaments and biological substances; Z79.82 Long term (current) use of aspirin; Z79.899 Other long term (current) drug therapy; Z79.4 Long term (current) use of insulin; Z95.1 Presence of aortocoronary bypass graft ==

== ENCOUNTER 2021-04-06 19:16 | Emergency (ER) | payer OTHER ==
[~2021-04-06] VITALS: Ht 180.3 cm; Wt 83.9 kg
[2021-04-06 20:28] LABS: URINE BILIRUBIN NEGATIVE (Negative); URINE BLOOD NEGATIVE (Negative); URINE CLARITY CLEAR; URINE COLOR YELLOW; URINE GLUCOSE-RANDOM* NEGATIVE (Negative); URINE KETONES NEGATIVE (Negative); URINE LEUKOCYTES-REFLEX NEGATIVE (Negative); URINE NITRITE-REFLEX NEGATIVE (Negative); URINE PROTEIN (DIPSTICK) NEGATIVE (Negative); URINE SPECIFIC GRAVITY 1.015 (1.005-1.035); URINE UROBILINOGEN 0.2 E.U./dl (0.2-1.0)
[2021-04-06 20:31] LABS: ABSOLUTE NEUTROPHILS 5.3 thou/uL (1.4-8.2); BASOPHILS 0.6 % (0.0-2.0); EOSINOPHILS 3.8 % (0.0-3.0); HEMATOCRIT 32.7 % (42.0-52.0); LYMPHOCYTES 10.3 % (24.0-44.0); MCH 30.6 pg (26.0-34.0); MCHC 33.5 g/dL (28.0-37.0); MCV 91.5 fL (80.0-100.0); MONOCYTES 8.3 % (1.0-8.0); PLATELET COUNT 283 thou/uL (150-400); RBC 3.58 mil/uL (4.50-6.00); RDW 12.8 % (10.5-14.5); WBC 6.9 thou/uL (4.0-11.0)
[2021-04-06 20:40] LABS: CALCIUM 8.8 mg/dL (8.5-10.1); CREATININE 4.2 mg/dL (0.7-1.3); POTASSIUM 4.8 mmol/L (3.5-5.1)
[2021-04-06 20:50] LABS: ALBUMIN 3.5 g/dL (3.4-5.0); TOTAL BILIRUBIN 0.3 mg/dL (0.2-1.0); TOTAL PROTEIN 7.2 g/dL (6.4-8.2)
[2021-04-06 22:11] VITALS: BP 151/66
--- NOTE | 2021-04-07 08:04 | EKG ---
[place] [address] [facility] [place] [address] ELECTROCARDIOGRAM REPORT Name: YOELMARLYN Abdiel [facility] [id number] Admission: 04/06/21 Attend Phys: Discharge: 04/06/21 Date of : 38 Report #: [id number] [facility] ED Test Date: 2021-04-06 Test Time: 20:00:32 Pat Name: MARLYN DIALLO Department: Room: Gender: M Elementary School Principal: kaushik : 1940 Requested By: Mi Reynaga Order Number: [id number] MD: Daniele Pires Measurements Intervals [place] Rate: 59 P: -4 RI: 249 QRS: -20 QRSD: 104 T: 3 QT: 420 QTc: 416 Interpretive Statements Sinus rhythm Prolonged [place] interval Borderline left axis deviation Compared to ECG 06/03/2020 20:10:55 T-wave abnormality no longer present Electronically Signed On 04-07-2021 8:03:45 CUSTODIAL FOREMAN by Daniele Pires [email or web address] <ELECTRONICALLY SIGNED> By: Daniele Pires MD, [facility] 04/07/21802 99 Jonathan Pires MD FACMell /EPI
[2021-04-07] MEDS ORDERED: ASPIRIN EC81 M1 PO (17:08)
[2021-04-07] MEDS ORDERED: SODIUM BICARBO650 M3 PO (17:28)
[2021-04-07] MEDS ORDERED: FUROSEMIDE 40 M40 MG PO (17:28)
[2021-04-07] MEDS ORDERED: KLOR-CON M2020 MEQ PO (17:30)
[2021-04-07] MEDS ORDERED: MONTELUKAST SODI4 M1 PO (17:30)
[2021-04-07] MEDS ORDERED: AUGMENTIN 500-1 EACH PO (18:02)
== END 2021-04-06 22:12 | disposition left against medical advice (07) ==
LOC: ER 19:16
PROVIDERS: Nurse Practitioner Family
DX: N17.9 Acute kidney failure, unspecified (principal); Z20.822 Contact with and (suspected) exposure to COVID-19; R06.02 Shortness of breath; E11.65 Type 2 diabetes mellitus with hyperglycemia; E87.1 Hypo-osmolality and hyponatremia; R60.0 Localized edema; I25.10 Atherosclerotic heart disease of native coronary artery without angina pectoris; Z95.1 Presence of aortocoronary bypass graft; E78.5 Hyperlipidemia, unspecified; I10 Essential (primary) hypertension; J44.9 Chronic obstructive pulmonary disease, unspecified; E78.00 Pure hypercholesterolemia, unspecified; K21.9 Gastro-esophageal reflux disease without esophagitis; Z90.89 Acquired absence of other organs; Z90.49 Acquired absence of other specified parts of digestive tract; Z98.890 Other specified postprocedural states; Z86.16 Personal history of COVID-19; Z79.4 Long term (current) use of insulin; Z79.1 Long term (current) use of non-steroidal anti-inflammatories (NSAID); Z79.891 Long term (current) use of opiate analgesic; Z79.899 Other long term (current) drug therapy; Z88.5 Allergy status to narcotic agent; Z88.6 Allergy status to analgesic agent; Z88.8 Allergy status to other drugs, medicaments and biological substances

== ENCOUNTER 2021-04-07 16:09 | Emergency (ER) | payer OTHER ==
[~2021-04-07] VITALS: Ht 180.3 cm; Wt 83.9 kg
[2021-04-07 16:47] LABS: HEMATOCRIT 31.1 % (42.0-52.0); HEMOGLOBIN 10.7 gm/dL (14.0-18.0); MCH 31.1 pg (26.0-34.0); MCHC 34.5 g/dL (28.0-37.0); MCV 90.2 fL (80.0-100.0); RBC 3.45 mil/uL (4.50-6.00); RDW 12.7 % (10.5-14.5); WBC 6.4 thou/uL (4.0-11.0)
[2021-04-07 16:59] LABS: CALCIUM 8.9 mg/dL (8.5-10.1); CREATININE 3.9 mg/dL (0.7-1.3); POTASSIUM 4.5 mmol/L (3.5-5.1)
[2021-04-07 17:05] LABS: ALBUMIN 3.5 g/dL (3.4-5.0); MAGNESIUM 2.5 mg/dL (1.8-2.4); TOTAL BILIRUBIN 0.4 mg/dL (0.2-1.0); TOTAL PROTEIN 7.3 g/dL (6.4-8.2)
[2021-04-07] MEDS ORDERED: ASPIRIN EC81 M1 PO (17:08)
[2021-04-07] MEDS ORDERED: FUROSEMIDE 40 M40 MG PO (17:28)
[2021-04-07] MEDS ORDERED: SODIUM BICARBO650 M3 PO (17:28)
[2021-04-07] MEDS ORDERED: KLOR-CON M2020 MEQ PO (17:30)
[2021-04-07] MEDS ORDERED: MONTELUKAST SODI4 M1 PO (17:30)
[2021-04-07] MEDS ORDERED: AUGMENTIN 500-1 EACH PO (18:02)
[2021-04-07 18:03] VITALS: BP 166/52
== END 2021-04-07 18:03 | disposition home or self-care (01) ==
LOC: ER 16:09
PROVIDERS: Nurse Practitioner Family
DX: J01.10 Acute frontal sinusitis, unspecified (principal); E87.1 Hypo-osmolality and hyponatremia; I12.9 Hypertensive chronic kidney disease with stage 1 through stage 4 chronic kidney disease, or unspecified chronic kidney disease; E11.22 Type 2 diabetes mellitus with diabetic chronic kidney disease; N18.9 Chronic kidney disease, unspecified; K21.9 Gastro-esophageal reflux disease without esophagitis; Z98.890 Other specified postprocedural states; Z79.899 Other long term (current) drug therapy; Z90.49 Acquired absence of other specified parts of digestive tract; Z79.82 Long term (current) use of aspirin; Z88.6 Allergy status to analgesic agent; Z88.8 Allergy status to other drugs, medicaments and biological substances